=== PATIENT | male | born 1990 | race Caucasian/White ===

== ENCOUNTER 2022-09-19 11:20 | Emergency (ER) | payer SELFPAY ==
[~2022-09-19] VITALS: Ht 195.6 cm; Wt 118.0 kg
--- NOTE | 2022-09-19 11:54 | ED Abdominal Pain ---
General Chief Complaint: Abdominal/GI Problems Stated Complaint: RECTAL PROBLEMS | ABD PAIN | N/V Source of Information: Patient Exam Limitations: No Limitations History of Present Illness Date Seen by Provider: Sep 19, 2022 Time Seen by Provider: 11:45 Initial Comments Patient is a 32-year-old male who presents to the emergency department for evaluation of abdominal pain, nausea/vomiting, and rectal pain. Patient states he has been having the abdominal pain since Saturday. States he has had the rectal pain since yesterday. States the nausea and vomiting began earlier today. Patient states he feels like he has "flesh coming out of his rectum". States he has had some small amount of bright red bleeding from his rectum. States his last bowel movement was on Saturday. States he is afraid to have a bowel movement due to his rectal discomfort. Patient has not taken anything for the symptoms today. He states his nausea is improved at this time but states it was worse earlier today while he was at work walking around. States the abdominal pain is diffuse in location and worse with movement or ambulation. He had 4-5 episodes of emesis today. States they are nonbloody and nonbilious per his report. No fever. Allergies and Home Medications Allergies Coded Allergies: No Known Drug Allergies (Unverified , 09/19/22) Patient Home Medication List Home Medication List Reviewed: Yes Review of Systems Review of Systems Constitutional: no symptoms reported EENTM: No Symptoms Reported Respiratory: No Symptoms Reported Cardiovascular: No Symptoms Reported Gastrointestinal: See HPI, Abdominal Pain, Nausea, Vomiting Genitourinary: No Symptoms Reported Musculoskeletal: no symptoms reported Skin: no symptoms reported Psychiatric/Neurological: No Symptoms Reported Endocrine: No Symptoms Reported Hematologic/Lymphatic: No Symptoms Reported Physical Exam Vital Signs Vital Signs - First Documented 09/19/22 11:35 Temp 36.4 Pulse 95 Resp 18 B/P (MAP) 138/85 (102) Pulse Ox 97 O2 Delivery Room Air Capillary Refill : Height/Weight/BMI Height: '" Weight: lbs. oz. kg; BMI Method: General Appearance: WD/WN, no apparent distress HEENT: PERRL/EOMI, normal ENT inspection, TMs normal, pharynx normal Neck: non-tender, full range of motion, supple, normal inspection Respiratory: chest non-tender, lungs clear, normal breath sounds, no respirator y distress, no accessory muscle use Cardiovascular: regular rate, rhythm, no edema Gastrointestinal: normal bowel sounds, soft, no organomegaly, tenderness (Diffuse) Rectal: hemorrhoids (External, mildly thrombosed) Extremities: normal range of motion, non-tender Neurologic/Psychiatric: no motor/sensory deficits, alert, normal mood/affect, oriented x 3 Skin: normal color, warm/dry Progress/Results/Core Measures Results/Orders Lab Results Laboratory Tests Test 09/19/22 11:47 09/19/22 12:19 Range/Units White Blood Count 6.4 4.3-11.0 10^3/uL Red Blood Count 5.46 4.30-5.52 10^6/uL Hemoglobin 16.1 13.3-17.7 g/dL Hematocrit 46 40-54 % Mean Corpuscular Volume 84 80-99 fL Mean Corpuscular Hemoglobin 30 25-34 pg Mean Corpuscular Hemoglobin Concent 35 32-36 g/dL Red Cell Distribution Width 12.4 10.0-14.5 % Platelet Count 177 130-400 10^3/uL Mean Platelet Volume 11.4 9.0-12.2 fL Immature Granulocyte % (Auto) 0 % Neutrophils (%) (Auto) 63 42-75 % Lymphocytes (%) (Auto) 27 12-44 % Monocytes (%) (Auto) 9 0-12 % Eosinophils (%) (Auto) 1 0-10 % Basophils (%) (Auto) 1 0-10 % Neutrophils # (Auto) 4.0 1.8-7.8 10^3/uL Lymphocytes # (Auto) 1.7 1.0-4.0 10^3/uL Monocytes # (Auto) 0.6 0.0-1.0 10^3/uL Eosinophils # (Auto) 0.1 0.0-0.3 10^3/uL Basophils # (Auto) 0.0 0.0-0.1 10^3/uL Immature Granulocyte # (Auto) 0.0 0.0-0.1 10^3/uL Sodium Level 139 135-145 MMOL/L Potassium Level 4.4 3.6-5.0 MMOL/L Chloride Level 103 98-107 MMOL/L Carbon Dioxide Level 22 21-32 MMOL/L Anion Gap 14 5-14 MMOL/L Blood Urea Nitrogen 16 7-18 MG/DL Creatinine 0.82 0.60-1.30 MG/DL Estimat Glomerular Filtration Rate 121 BUN/Creatinine Ratio 20 Glucose Level 246 H 70-105 MG/DL Calcium Level 10.0 8.5-10.1 MG/DL Corrected Calcium 9.6 8.5-10.1 MG/DL Total Bilirubin 1.3 H 0.1-1.0 MG/DL Aspartate Amino Transf (AST/SGOT) 19 5-34 U/L Alanine Aminotransferase (ALT/SGPT) 32 0-55 U/L Alkaline Phosphatase 61 40-136 U/L Total Protein 7.7 6.4-8.2 GM/DL Albumin 4.5 3.2-4.5 GM/DL Lipase 39 8-78 U/L Urine Color YELLOW Urine Clarity CLEAR Urine pH 5.5 5-9 Urine Specific [place] 1.025 H 1.016-1.022 Urine Protein NEGATIVE NEGATIVE Urine Glucose (UA) 3+ H NEGATIVE Urine Ketones 3+ H NEGATIVE Urine Nitrite NEGATIVE NEGATIVE Urine Bilirubin NEGATIVE NEGATIVE Urine Urobilinogen 0.2 < = 1.0 MG/DL Urine Leukocyte Esterase NEGATIVE NEGATIVE Urine RBC (Auto) NEGATIVE NEGATIVE Urine RBC NONE /HPF Urine WBC NONE /HPF Urine Squamous Epithelial Cells 2-5 /HPF Urine Crystals NONE /LPF Urine Bacteria NEGATIVE /HPF Urine Casts NONE /LPF Urine Mucus NEGATIVE /LPF Urine Culture Indicated NO My Orders Orders - [facility] GYN Cbc With Automated Diff (09/19/22 11:48) Comprehensive Metabolic Panel (09/19/22 11:48) Iv/Invasive Line Insertion .IV INSERT (09/19/22 11:48) Urinalysis (09/19/22 11:48) Ct Abdomen/Pelvis W (09/19/22 11:48) Lipase (09/19/22 11:48) Ketorolac Injection (Toradol Injection) (09/19/22 12:00) Iohexol Injection (Omnipaque 350 Mg/Ml 1 (09/19/22 12:00) Received Contrast (Hold Metformin- Contr (09/19/22 12:00) Ns (Ivpb) (Sodium Chloride 0.9% Ivpb Bag (09/19/22 12:00) Medications Given in ED Current Medications Medications Dose Ordered Sig/Hilario Route Start Time Stop Time Status Last Admin Dose Admin Ketorolac Tromethamine 15 mg ONCE ONCE IVP 09/19/22 12:00 2/8/23 12:01 DC 09/19/22 11:57 15 MG Vital Signs/I&O 09/19/22 11:35 Temp 36.4 Pulse 95 Resp 18 B/P (MAP) 138/85 (102) Pulse Ox 97 O2 Delivery Room Air Progress Progress Note : Progress Note Patient is nontoxic and well-hydrated on exam. Vital signs are reassuring. Abdominal exam notable for diffuse tenderness to palpation. Rectal exam notable for mildly thrombosed external hemorrhoid. No active bleeding noted. Patient is awake alert and oriented. Answers all questions appropriately. He was ambulatory to the room without issue. Orders placed for CBC, CMP, urinalysis, lipase, IV insertion, and abdomen/pelvis with contrast. CBC is unremarkable. Specifically there is no leukocytosis or anemia. CMP without any specific significant metabolic derangements. Urinalysis notable for ketonuria and glucosuria. Patient is not in DKA at this time. Patient refused the CT of the abdomen and pelvis due to not having insurance. Patient will be discharged home with recommendations for supportive care and close follow-up with PCP. Return precautions for urgent symptomology discussed. Patient verbalized understanding. Departure Impression Primary Impression: Abdominal pain Qualified Codes: R10.84 - Generalized abdominal pain Additional Impression: External hemorrhoid Disposition: HOME, SELF-CARE Condition: Stable Departure-Patient Inst. Decision time for Depature: 12:55 Referrals: NO,LOCAL PHYSICIAN (PCP/Family) Primary Care Physician Patient Instructions: Hemorrhoids ED, Abdominal Pain, Adult ED Scripts Hydrocortisone (Anusol-Hc) 2.5 % Cream..g. 30 GM RC BID for 7 Days, #1 EA 0 Refills Prov: LEONMELBA HERNADEZ APRN 09/19/22 Polyethylene Glycol 3350 (Miralax) 17 Gram Powd.pack 17 GM PO DAILY for 7 Days, #7 EACH 0 Refills Prov: LEONMELBA HERNADEZ APRN 09/19/22 Hyoscyamine Sulfate (Hyoscyamine Sulfate) 0.125 Mg Tab.subl 0.125 MG SL Q8H PRN for CRAMPS for 3 Days, #9 TAB 0 Refills Prov: LEONMELBA HERNADEZ APRN 09/19/22 Ondansetron (Ondansetron Odt) 4 Mg Tab.rapdis 4 MG SL Q4H PRN for NAUSEA/VOMITING for 3 Days, #18 TAB 0 Refills Prov: MELBA LEON APRN 09/19/22 MELBA LEON APRN Sep 19, 2022 11:53
[2022-09-19 11:56] LABS: BASOPHILS % (AUTO) 1 % (0-10); EOSINOPHILS # (AUTO) 0.1 10^3/uL (0.0-0.3); EOSINOPHILS % (AUTO) 1 % (0-10); HEMATOCRIT 46 % (40-54); HEMOGLOBIN 16.1 g/dL (13.3-17.7); LYMPHOCYTES # (AUTO) 1.7 10^3/uL (1.0-4.0); LYMPHOCYTES % (AUTO) 27 % (12-44); MEAN CORPUSCULAR HEMOGLOBIN 30 pg (25-34); MEAN CORPUSCULAR HGB CONC 35 g/dL (32-36); MEAN CORPUSCULAR VOLUME 84 fL (80-99); MEAN PLATELET VOLUME 11.4 fL (9.0-12.2); MONOCYTES # (AUTO) 0.6 10^3/uL (0.0-1.0); MONOCYTES % (AUTO) 9 % (0-12); NEUTROPHILS % (AUTO) 63 % (42-75); PLATELET COUNT 177 10^3/uL (130-400); WHITE BLOOD COUNT 6.4 10^3/uL (4.3-11.0)
[2022-09-19] MEDS ORDERED: HOLD METFORMIN - RECEIVED CONTRAST 20 ML VIAL IV SCH (12:00)
[2022-09-19] MEDS ORDERED: KETOROLAC 15 MG/ML VIAL IVP ONE (12:00)
[2022-09-19] MEDS ORDERED: IOHEXOL 350 MG/ML 100 ML (OMNIPAQUE 350) VIAL IV ONE (12:00)
[2022-09-19] MEDS ORDERED: NS 100 ML (IVPB) BAG IV ONE (12:00)
[2022-09-19 12:03] LABS: ALBUMIN 4.5 GM/DL (3.2-4.5); POTASSIUM 4.4 MMOL/L (3.6-5.0)
[2022-09-19 12:06] LABS: TOTAL PROTEIN 7.7 GM/DL (6.4-8.2)
[2022-09-19 12:08] LABS: BILIRUBIN,TOTAL 1.3 MG/DL (0.1-1.0)
[2022-09-19 12:10] LABS: CREATININE SERUM 0.82 MG/DL (0.60-1.30)
[2022-09-19 12:30] LABS: BILIRUBIN,URINE NEGATIVE (NEGATIVE); CLARITY,URINE CLEAR; COLOR,URINE YELLOW; GLUCOSE, URINE (UA) 3+ (NEGATIVE); KETONES,URINE 3+ (NEGATIVE); LEUKOCYTE ESTERASE ,URINE NEGATIVE (NEGATIVE); NITRITE,URINE NEGATIVE (NEGATIVE); PH,URINE 5.5 (5-9); PROTEIN,URINE NEGATIVE (NEGATIVE)
[2022-09-19 12:41] LABS: BACTERIA,URINE NEGATIVE /HPF
[2022-09-19] MEDS ORDERED: POLY17PO6 PO (12:59)
[2022-09-19] MEDS ORDERED: HYOS-19 SL (12:59)
[2022-09-19] MEDS ORDERED: HYDR30CR71 RC (12:59)
[2022-09-19] MEDS ORDERED: ONDA4TAB11 SL (12:59)
[2022-09-19 13:10] VITALS: BP 135/85
== END 2022-09-19 13:10 | disposition home or self-care (01) ==
LOC: EDUNIT# 11:20 → ER 11:24
DX: K64.5 Perianal venous thrombosis (principal); Z28.310 Unvaccinated for COVID-19
CPT/HCPCS: 36415; 80053; 81000; 83690; 85025; 99284

== ENCOUNTER → 2023-01-19 | Outpatient (CLI) | payer BC, OTHER ==
[~2023-01-19] MED LIST: HYDR30CR71 RC; HYOS-19 SL; ONDA4TAB11 SL; POLY17PO6 PO
[2023-01-19 11:19] LABS: BASOPHILS % (AUTO) 1 % (0-10); EOSINOPHILS # (AUTO) 0.1 10^3/uL (0.0-0.3); EOSINOPHILS % (AUTO) 2 % (0-10); HEMATOCRIT 49 % (40-54); HEMOGLOBIN 17.5 g/dL (13.3-17.7); LYMPHOCYTES # (AUTO) 2.2 10^3/uL (1.0-4.0); LYMPHOCYTES % (AUTO) 36 % (12-44); MEAN CORPUSCULAR HEMOGLOBIN 30 pg (25-34); MEAN CORPUSCULAR HGB CONC 36 g/dL (32-36); MEAN CORPUSCULAR VOLUME 83 fL (80-99); MEAN PLATELET VOLUME 11.8 fL (9.0-12.2); MONOCYTES # (AUTO) 0.3 10^3/uL (0.0-1.0); MONOCYTES % (AUTO) 5 % (0-12); NEUTROPHILS # (AUTO) 3.4 10^3/uL (1.8-7.8); NEUTROPHILS % (AUTO) 56 % (42-75); PLATELET COUNT 187 10^3/uL (130-400)
[2023-01-19 11:46] LABS: ALANINE AMINOTRANSFERASE 36 U/L (0-55); ALBUMIN 4.6 GM/DL (3.2-4.5); ALKALINE PHOSPHATASE 69 U/L (40-136); BILIRUBIN,TOTAL 1.2 MG/DL (0.1-1.0); BUN/CREATININE RATIO 14; CALCIUM 9.5 MG/DL (8.5-10.1); CARBON DIOXIDE 20 MMOL/L (21-32); CHLORIDE 105 MMOL/L (98-107); CHOLESTEROL 126 MG/DL (< 200); CREATININE SERUM 0.84 MG/DL (0.60-1.30); GFR ESTIMATED 120; GLUCOSE 285 MG/DL (70-105); HDL CHOLESTEROL 26 MG/DL (40-60); POTASSIUM 4.2 MMOL/L (3.6-5.0); SODIUM 137 MMOL/L (135-145); TOTAL PROTEIN 7.6 GM/DL (6.4-8.2); TRIGLYCERIDES 469 MG/DL (<150)
== END ==
LOC: LAB 10:56
PROVIDERS: ATTEND Nurse Practitioner Family
DX: E11.69 Type 2 diabetes mellitus with other specified complication (principal); E78.5 Hyperlipidemia, unspecified; E11.65 Type 2 diabetes mellitus with hyperglycemia; Z79.4 Long term (current) use of insulin
CPT/HCPCS: 36415; 80053; 80061; 83036; 84443; 85025; 87088